=== PATIENT | female | born 1980 | race Caucasian/White ===

== ENCOUNTER 2016-09-30 13:29 | Emergency (ER) | payer OTHER ==
[2016-09-30 13:47] VITALS: TEMP 97.9
[2016-09-30 14:40] LABS: % IMMATURE GRANULYOCYTES 0.3 % (0.0-1.1); ABSOLUTE IMMATURE GRANULOCYTES 0.04 10^3/uL (0.00-0.10); ADD DIFF? NO; ADD MORPH? NO; ADD SCAN? NO; ATYPICAL LYMPHOCYTE FLAG 10 (0-99); FRAGMENT RBC FLAG 0 (0-99); HEMOGLOBIN 14.8 g/dL (12.6-16.3); LEFT SHIFT FLG 0 (0-99); LIPEMIA HEMOLYSIS FLAG 80 (0-99); MEAN CELL HEMOGLOBIN 29.5 pg (27.9-34.1); MEAN CELL HEMOGLOBIN CONCENTR. 33.6 g/dL (32.4-36.7); MEAN CELL VOLUME 87.6 fL (81.5-99.8); PLATELET CLUMPS FLAG 0 (0-99); PLATELET COUNT 342 10^3/uL (150-400); RED BLOOD CELL COUNT 5.02 10^6/uL (4.18-5.33); RED CELL DISTRIBUTION WIDTH 13.5 % (11.5-15.2)
[2016-09-30 14:42] LABS: COLOR YELLOW; LEUKOCYTE ESTERASE,URINE NEGATIVE (NEGATIVE); NITRITE,URINE NEGATIVE (NEGATIVE)
[2016-09-30] MEDS ORDERED: ONDANSETRON 4 MG/2 ML VIAL IVP ONE ×2 (14:42→15:52)
[2016-09-30] MEDS ORDERED: KETOROLAC 30 MG/1 ML SDV IVP ONE (14:42)
[2016-09-30] MEDS ORDERED: NS 1,000 ML IV ONE ×2 (14:42→15:52)
[2016-09-30 14:53] LABS: ALANINE AMINOTRANSFERASE 52 IU/L (9-52); ALBUMIN 4.3 g/dL (3.5-5.0); ALKALINE PHOSPHATASE 78 IU/L (38-126); ANION GAP 14 mEq/L (8-16); ASPARTATE AMINOTRANSFERASE 36 IU/L (14-46); BILIRUBIN,TOTAL 0.8 mg/dL (0.1-1.4); CALCIUM 9.9 mg/dL (8.5-10.4); CARBON DIOXIDE 20 mEq/l (22-31); CHLORIDE 105 mEq/L (97-110); CREATININE 0.8 mg/dL (0.6-1.0); GLOMERULAR FILTRATION RATE > 60; GLUCOSE 101 mg/dL (70-100); POTASSIUM 4.2 mEq/L (3.5-5.2); SODIUM 139 mEq/L (134-144); TOTAL PROTEIN 7.3 g/dL (6.3-8.2)
[2016-09-30] MEDS ORDERED: ONDANSETRON 4 MG/2 ML VIAL ONE (15:50)
--- NOTE | 2016-09-30 15:51 | UCPHY ---
H & P Time Seen by Provider: 09/30/16 14:13 Patient Type: Established HPI/ROS: 36-year-old female presents complaining epigastric and right upper quadrant pain that began this morning after drinking a smoothie. This was followed by several episodes of emesis. She denies constipation diarrhea she denies fever chills. She states she just recently returned from a vacation in [place] where she actually had 2 episodes of severe epigastric abdominal pain, not necessarily related to food however 1 time she had had ice cream another time she had had a cocktail. No chest pain, no shortness of breath, no leg pain no leg swelling Patient had seen a driver courier last year for colonoscopy and diagnosed with diverticulosis however no evidence of diverticulitis, this history is per the patient. Review of systems General no fever no chills no weakness HEENT no eye pain no eye discharge. No eye redness, no sore throat Respiratory no cough, no shortness of breath Cardiac no chest pain, no peripheral edema GI positive abdominal pain positive nausea positive vomiting negative diarrhea negative constipation no flank pain, no hematuria, no dysuria Musculoskeletal no myalgias, no joint pain Heme no easy bruising, no easy bleeding Endo no polyuria, no polydipsia Skin no rashes, no pruritus Neuro no syncope, no dizziness, no headaches Psych is no suicidal ideation, no homicidal ideation Past Medical/Surgical History: Lumbar spinal fusion Social History: Alcohol socially, denies drug use Smoking Status: Never smoked Physical Exam: 36-year-old female alert and oriented no acute distress nontoxic appearance, afebrile HEENT atraumatic normocephalic, extraocular muscles intact, anicteric Oropharynx negative for erythema negative exudate, tolerating her own secretions Neck supple no meningismus Lungs clear to auscultation bilaterally Heart regular rate and rhythm without murmur rub or gallop Abdomen very obese abdomen, normal bowel sounds, soft, positive epigastric and right upper quadrant tenderness to palpation, no guarding no rebound no pulsatile mass Back no CVA tenderness, no step-offs, no spinal tenderness Extremities no cyanosis clubbing or edema Neuro alert and oriented, no focal deficits Constitutional: Initial Vital Signs Temperature (C) 36.6 C 09/30/16 13:44 Heart Rate 76 09/30/16 13:44 Respiratory Rate 20 09/30/16 13:44 Blood Pressure 131/75 H 09/30/16 13:44 O2 Sat (%) 96 09/30/16 13:44 O2 Delivery Mode Room Air Allergies/Adverse Reactions: No Known Allergies Allergy (Verified 09/30/16 13:47) Home Medications: Medication Instructions Recorded Lexapro 08/13/15 Topamax 08/13/15 Ondansetron Odt [Zofran Odt 4 mg 4 mg PO Q4 PRN #10 tab 09/30/16 (*)] Pantoprazole Sodium [Protonix 40mg 40 mg PO DAILY #30 tab 09/30/16 (*)] Medical Decision Making - Diagnostics Imaging Results: Imaging Impressions Abdomen Ultrasound 09/30/16 14:34 Impression: Stable normal gallbladder. No source for pain identified. Results called to Dr. Green at 3:54 PM. ED Course/Re-evaluation: Patient seen and evaluated for epigastric abdominal pain radiating to her back Differential diagnosis considered Biliary colic, acute cholelithiasis, acute cholecystitis acute pancreatitis acute gastritis, peptic ulcer disease duodenitis Labs sent WBC slightly elevated Lipase, LFTs within normal limits Ultrasound negative for cholelithiasis Patient given IV fluids morphine and Zofran with marked resolution of her pain Impression Acute gastritis Possible duodenitis Plan Home Zofran Protonix Follow-up PCP Possible referral from PCP to Gastroenterology - Data Points Laboratory Results: Laboratory Results 09/30/16 13:50 09/30/16 13:50 09/30/16 09/30/16 09/30/16 14:35 13:50 13:50 WBC RBC Hgb Hct MCV MCH MCHC RDW Plt Count MPV Neut % (Auto) Lymph % (Auto) [place] % (Auto) Eos % (Auto) Baso % (Auto) Nucleat RBC Rel Count Absolute Neuts (auto) Absolute Lymphs (auto) Absolute Monos (auto) Absolute Eos (auto) Absolute Basos (auto) Absolute Nucleated RBC Immature Gran % Immature Gran # Sodium 139 mEq/L mEq/L (134-144) Potassium 4.2 mEq/L mEq/L (3.5-5.2) Chloride 105 mEq/L mEq/L (97-110) Carbon Dioxide 20 mEq/l L mEq/l (22-31) Anion Gap 14 mEq/L mEq/L (8-16) BUN 14 mg/dL mg/dL (7-23) Creatinine 0.8 mg/dL mg/dL (0.6-1.0) Estimated GFR > 60 Glucose 101 mg/dL H mg/dL (70-100) Calcium 9.9 mg/dL mg/dL (8.5-10.4) Total Bilirubin 0.8 mg/dL mg/dL (0.1-1.4) AST 36 IU/L IU/L (14-46) ALT 52 IU/L IU/L (9-52) Alkaline Phosphatase 78 IU/L IU/L (38-126) Total Protein 7.3 g/dL g/dL (6.3-8.2) Albumin 4.3 g/dL g/dL (3.5-5.0) Lipase 77.0 IU/L IU/L (23-300) Beta HCG, Qual NEGATIVE Urine Color YELLOW Urine Appearance CLOUDY Urine pH 7.0 (5.0-7.5) Ur Specific [place] 1.010 (1.002-1.030) Urine Protein NEGATIVE (NEGATIVE) Urine Ketones NEGATIVE (NEGATIVE) Urine Blood NEGATIVE (NEGATIVE) Urine Nitrate NEGATIVE (NEGATIVE) Urine Bilirubin NEGATIVE (NEGATIVE) Urine Urobilinogen 0.2 EU EU (0.2-1.0) Ur Leukocyte Esterase NEGATIVE (NEGATIVE) Ur Culture Indicated? NOT INDICATED (NI) Urine Glucose NEGATIVE (NEGATIVE) 09/30/16 13:50 WBC 11.69 10^3/uL H 10^3/uL (3.80-9.50) RBC 5.02 10^6/uL 10^6/uL (4.18-5.33) Hgb 14.8 g/dL g/dL (12.6-16.3) Hct 44.0 % % (38.0-47.0) MCV 87.6 fL fL (81.5-99.8) MCH 29.5 pg pg (27.9-34.1) MCHC 33.6 g/dL g/dL (32.4-36.7) RDW 13.5 % % (11.5-15.2) Plt Count 342 10^3/uL 10^3/uL (150-400) MPV 10.0 fL fL (8.7-11.7) Neut % (Auto) 83.2 % H % (39.3-74.2) Lymph % (Auto) 11.9 % L % (15.0-45.0) [place] % (Auto) 3.3 % L % (4.5-13.0) Eos % (Auto) 0.9 % % (0.6-7.6) Baso % (Auto) 0.4 % % (0.3-1.7) Nucleat RBC Rel Count 0.0 % % (0.0-0.2) Absolute Neuts (auto) 9.72 10^3/uL H 10^3/uL (1.70-6.50) Absolute Lymphs (auto) 1.39 10^3/uL 10^3/uL (1.00-3.00) Absolute Monos (auto) 0.39 10^3/uL 10^3/uL (0.30-0.80) Absolute Eos (auto) 0.10 10^3/uL 10^3/uL (0.03-0.40) Absolute Basos (auto) 0.05 10^3/uL 10^3/uL (0.02-0.10) Absolute Nucleated RBC 0.00 10^3/uL 10^3/uL (0-0.01) Immature Gran % 0.3 % % (0.0-1.1) Immature Gran # 0.04 10^3/uL 10^3/uL (0.00-0.10) Sodium Potassium Chloride Carbon Dioxide Anion Gap BUN Creatinine Estimated GFR Glucose Calcium Total Bilirubin AST ALT Alkaline Phosphatase Total Protein Albumin Lipase Beta HCG, Qual Urine Color Urine Appearance Urine pH Ur Specific [place] Urine Protein Urine Ketones Urine Blood Urine Nitrate Urine Bilirubin Urine Urobilinogen Ur Leukocyte Esterase Ur Culture Indicated? Urine Glucose Medications Given: Discontinued Medications Sodium Chloride (Ns) 1,000 mls @ 0 mls/hr IV ONCE ONE PRN Reason: Wide Open Stop: 09/30/16 14:43 Last Admin: 09/30/16 14:59 Dose: 1,000 mls Sodium Chloride (Ns) 1,000 mls @ 0 mls/hr IV ONCE ONE PRN Reason: Wide Open Stop: 09/30/16 15:53 Last Admin: 09/30/16 16:03 Dose: 1,000 mls Ketorolac Tromethamine (Toradol) 30 mg IVP EDNOW ONE Stop: 09/30/16 14:43 Last Admin: 09/30/16 14:51 Dose: 30 mg Morphine Sulfate (Morphine) 4 mg IVP EDNOW ONE Stop: 09/30/16 14:52 Last Admin: 09/30/16 14:52 Dose: 4 mg Ondansetron HCl (Zofran) 4 mg IVP EDNOW ONE Stop: 09/30/16 14:43 Last Admin: 09/30/16 15:00 Dose: 4 mg Ondansetron HCl (Zofran) 4 mg IVP EDNOW ONE Stop: 09/30/16 15:53 Last Admin: 09/30/16 15:55 Dose: 4 mg Departure - Departure Disposition: Home, Routine, Self-Care Clinical Impression: Gastritis and duodenitis Condition: Good Instructions: Gastritis (ED), Diet for Stomach Ulcers and Gastritis (ED), Duodenitis (ED) Referrals: NONE *PRIMARY CARE P,. [Primary Care Provider] - As per Instructions Prescriptions: Ondansetron Odt [Zofran Odt 4 mg (*)] 4 mg PO Q4 PRN #10 tab PRN Reason: Nausea/Vomiting, Use 1st Pantoprazole Sodium [Protonix 40mg (*)] 40 mg PO DAILY #30 tab - PQRS PQRS Measurement: na
[2016-09-30 16:40] VITALS: BP 125/88; PULSE 59; RESP 18; O2SAT 100
== END 2016-09-30 17:05 | disposition home or self-care (01) ==
LOC: CED 13:29
DX: K29.90 Gastroduodenitis, unspecified, without bleeding (principal)
CPT/HCPCS: 76705-PO; 80053-PO; 81003-PO; 83690-PO; 84703-PO; 85025-PO; 96361-PO; 96374-PO; 96375-PO; 96376-PO; G0463-PO; J1885; J2405

== ENCOUNTER 2018-10-04 16:14 | Emergency (ER) | payer BC ==
[2018-10-04] MEDS ORDERED: MAG HYDROX/AL HYDROX/SIMETH 30 ML UDCUP PO ONE (17:19)
[2018-10-04] MEDS ORDERED: LIDOCAINE 2% VISCOUS 15 ML UDCUP PO ONE (17:19)
[2018-10-04] MEDS ORDERED: fentaNYL 100 MCG/2 ML INJ IVP ONE (17:19)
[2018-10-04] MEDS ORDERED: HYOSCYAMINE SULFATE 0.125 MG TAB PO ONE (17:19)
[2018-10-04] MEDS ORDERED: NS 1,000 ML IV ONE (17:19)
--- NOTE | 2018-10-04 17:34 | EDPHY ---
H & P Time Seen by Provider: 10/04/18 16:34 HPI/ROS: CHIEF COMPLAINT: Bilateral abdominal and flank pain HISTORY OF PRESENT ILLNESS: Patient presents with "pain behind the ribs and into the back". She states it has been going on for about 1 and half weeks. It started on the left in became bilateral. She does have chronic right upper quadrant abdominal pain that began about 10 months ago. She did have her gallbladder removed at [facility] in February of last year. It did not help this right upper quadrant pain. She did have an extensive hospitalization after her gallbladder removal to evaluate for continued pain. At that time she got both upper and lower endoscopy and was found have some gastric ulcers. She was put on a proton pump inhibitor and has shown improvement on repeat upper endoscopy. She states the pain that brings her in today is worse in the morning. Sometimes worse with deep breath but not always. There is no nausea or vomiting. She does not state that any particular things such as eating or activity makes it worse or better. She also states that she has had anal leaking intermittently over the last 2 weeks. As well she has had pain with passing stool over the same period of time. Last menstrual period was a few weeks ago. Last Pap smear was 1 year ago. She describes some spotting and irritation with quite is yesterday but denies vaginal discharge. She was seen at her [employer] operations staff officer's office up stairs just prior to her visit to the emergency department today. REVIEW OF SYSTEMS: Constitutional: No fever, no chills. Eyes: No discharge. ENT: No sore throat. Cardiovascular: No chest pain, no palpitations. Respiratory: No cough, no shortness of breath. Gastrointestinal: Per HPI Genitourinary: No dysuria. Musculoskeletal: No back pain. Skin: No rashes. Neurological: No headache. General Appearance: Alert, no distress. Eyes: Pupils equal and round no pallor or injection. ENT, Mouth: Mucous membranes moist. Respiratory: There are no retractions, lungs are clear to auscultation. Cardiovascular: Regular rate and rhythm. Gastrointestinal: Abdomen is soft, bowel sounds normal. Diffuse tenderness to palpation all 4 quadrants with some voluntary guarding. No distention. External visual rectal exam shows small anal fissure in the 12 o'clock position. Neurological: Awake, alert, cranial nerves intact, no focal neurologic deficits. Skin: Warm and dry, no rashes. Musculoskeletal: Neck is supple nontender. Extremities are symmetrical, full range of motion, no edema. Psychiatric: Patient is oriented X 3, there is no agitation. Medical/surgical history: Appendectomy, cholecystectomy, tonsils and adenoids, spinal fusion L5-S1, C-sections. Gastric ulcers February 2018. Anxiety. Social history: Social EtOH approximately 1 per day. No tobacco or drugs. Smoking Status: Never smoked Constitutional: Initial Vital Signs Temperature (C) 36.8 C 10/04/18 16:25 Heart Rate 83 10/04/18 16:25 Respiratory Rate 16 10/04/18 16:25 Blood Pressure 129/91 H 10/04/18 16:25 O2 Sat (%) 96 10/04/18 16:25 O2 Delivery Mode Room Air Allergies/Adverse Reactions: No Known Allergies Allergy (Verified 10/04/18 16:24) Home Medications: Medication Instructions Recorded Lexapro 08/13/15 Topamax 08/13/15 Pantoprazole Sodium [Protonix 40mg 40 mg PO DAILY #30 tab 09/30/16 (*)] Medical Decision Making - Diagnostics Imaging Results: Imaging Impressions Abdomen CT 10/04/18 17:20 Impression: 1. Moderate constipation. No evidence of bowel obstruction or acute colitis. 2. Cholecystectomy. No biliary dilation or evidence of common bile duct stone. 3. No free fluid, mesenteric edema, or localized intraabdominal process. Findings discussed with Emergency Department physician, Vivian Edmondson M.D., on October 04, 2018 at 1851. ED Course/Re-evaluation: CT result called in by radiologist essentially negative exam. Reviewed findings with patient. Differential Diagnosis: Differential diagnosis includes but is not limited to bowel obstruction, constipation, anal fissure, fistula, gastritis, diverticulitis, urinary tract infection, anxiety. After evaluation unclear cause of patient's symptoms although found have a small anal fissure on physical exam and moderate constipation on CT scan. No evidence of obstruction, diverticulitis, significant liver disease, pancreatitis or other acute or surgical condition. Suspect some anxiety component. Patient advised to use Sitz baths, take stool softeners, continue proton pump inhibitors. Strongly recommended she follow up with her primary care physician in the next week. Reviewed return precautions. Stable for discharge. - Data Points Laboratory Results: 10/04/18 10/04/18 17:51 17:41 POC Sodium 140 mEq/L mEq/L (135-145) POC Potassium 3.8 mEq/L mEq/L (3.3-5.0) POC Chloride 111.0 mEq/L H mEq/L (97-110) POC Total CO2 24 mEq/L mEq/L (22-31) POC BUN 13 mg/dL mg/dL (7-23) POC Creatinine 1.1 mg/dL H mg/dL (0.6-1.0) POC Glucose 100 mg/dL mg/dL (70-100) POC Calcium 9.6 mg/dL mg/dL (8.5-10.4) POC Total Bilirubin 0.9 mg/dL mg/dL (0.1-1.4) POC AST 33 IU/L IU/L (14-46) POC ALT 39 IU/L IU/L (9-52) POC Alk Phosphatase 74 IU/L IU/L (38-126) POC Total Protein 6.8 g/dL g/dL (6.3-8.2) POC Albumin 4.2 g/dL g/dL (3.5-5.0) Lipase 64 IU/L IU/L (23-300) Medications Given: Discontinued Medications Al Hydroxide/Mg Hydroxide (Maalox Susp) 30 ml PO ONCE ONE Stop: 10/04/18 17:20 Last Admin: 10/04/18 18:09 Dose: 30 ml Fentanyl (Sublimaze) 50 mcg IVP EDNOW ONE Stop: 10/04/18 17:20 Last Admin: 10/04/18 18:10 Dose: 50 mcg Hyoscyamine Sulfate (Levsin, Hyomax-Sl) 0.25 mg PO ONCE ONE Stop: 10/04/18 17:20 Last Admin: 10/04/18 18:10 Dose: 0.25 mg Sodium Chloride (Ns) 1,000 mls @ 0 mls/hr IV EDNOW ONE; Wide Open PRN Reason: Protocol Stop: 10/04/18 17:20 Last Admin: 10/04/18 18:09 Dose: 1,000 mls Lidocaine (Lidocaine 2% Viscous) 15 ml PO ONCE ONE Stop: 10/04/18 17:20 Last Admin: 10/04/18 18:09 Dose: 15 ml Point of Care Test Results: CBC CBC Collection Date 10/04/18 CBC Collection Time 17:41 WBC 6.85 RBC 4.78 HGB 14.2 HCT 42.6 PLT 261 Neut # 4.26 Neut 62.3 LYMPH # 2.02 LYMPH 29.5 MCV 89.1 Chemistry 10/04/18 17:51 POC Sodium 140 mEq/L mEq/L (135-145) POC Potassium 3.8 mEq/L mEq/L (3.3-5.0) POC Chloride 111.0 mEq/L H mEq/L (97-110) POC Total CO2 24 mEq/L mEq/L (22-31) POC BUN 13 mg/dL mg/dL (7-23) POC Creatinine 1.1 mg/dL H mg/dL (0.6-1.0) POC Glucose 100 mg/dL mg/dL (70-100) POC Calcium 9.6 mg/dL mg/dL (8.5-10.4) POC Total Bilirubin 0.9 mg/dL mg/dL (0.1-1.4) POC AST 33 IU/L IU/L (14-46) POC ALT 39 IU/L IU/L (9-52) POC Alk Phosphatase 74 IU/L IU/L (38-126) POC Total Protein 6.8 g/dL g/dL (6.3-8.2) POC Albumin 4.2 g/dL g/dL (3.5-5.0) Urine Collection Date 10/04/18 Collection Time 16:25 HCG Results Negative Urine Dip Collection Date 10/04/18 Collection Time 16:25 Specific [place] (1.002-1.030) 1.025 PH (5.0-7.5) 7.0 Leukocytes (Negative) Trace Nitrites (Negative) Negative Protein (Negative) Trace Glucose (Negative) Negative Ketones (Negative) Negative Urobilnogen (0.2-1.0 EU) 2.0 Bilirubin (Negative) Negative Blood (Negative) Negative Departure - Departure Disposition: Home, Routine, Self-Care Clinical Impression: Anal fissure Abdominal pain Qualifiers: Abdominal location: generalized Qualified Code(s): R10.84 - Generalized abdominal pain Constipation Qualifiers: Constipation type: unspecified constipation type Qualified Code(s): K59.00 - Constipation, unspecified Condition: Good Instructions: Constipation (ED), Anal Fissure (ED), High Fiber Diet (ED) Additional Instructions: Try Colace, Dulcolax, Metamucil and or MiraLax [id number] for mild constipation. Do Sitz baths as discussed twice daily. Follow up with your primary care physician without fail in the next 1-2 weeks. Return to the emergency department for any new or more concerning symptoms. Referrals: Woodrow Tate [Primary Care Provider] - As per Instructions Stand Alone Forms: Work Excuse
[2018-10-04] MEDS ORDERED: IOPAMIDOL (ISOVUE-300) 100 ML BTL ONE (18:09)
[2018-10-04 19:04] VITALS: BP 120/78
== END 2018-10-04 19:43 | disposition home or self-care (01) ==
LOC: CED 16:14
DX: R10.11 Right upper quadrant pain (principal); K60.2 Anal fissure, unspecified; K59.00 Constipation, unspecified; E86.9 Volume depletion, unspecified
CPT/HCPCS: 74177-PO; 80053-ER; 81025-ER; 85025-QW-ER; 96361-ER; 96374-ER; 99285-ER; J3010; Q9967

== ENCOUNTER → 2018-10-04 | Outpatient (CLI) | payer BC | LOC: CIMAGING 15:43 | PROVIDERS: ATTEND Physician Assistant | DX: K59.00 Constipation, unspecified (principal) | CPT/HCPCS: 74019-PO ==